=== PATIENT | male | born 1960 | race Caucasian/White ===

== ENCOUNTER 2018-03-04 13:18 | Emergency (ER) | payer OTHER ==
[2018-03-04 13:20] VITALS: BP 188/137
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
[2018-03-04] MEDS ORDERED: IBUPROFEN 800 MG TAB PO ONE (15:10)
== END 2018-03-04 15:38 | disposition home or self-care (01) ==
LOC: ER 13:32
DX: S70.11XA Contusion of right thigh, initial encounter (principal); V68.5XXA Driver of heavy transport vehicle injured in noncollision transport accident in traffic accident, initial encounter
CPT/HCPCS: 99284

== ENCOUNTER → 2018-03-04 | Outpatient (CLI) | payer OTHER | LOC: AMB 12:38 | PROVIDERS: ATTEND Nurse Practitioner | DX: M79.652 Pain in left thigh (principal); R51 Headache; V49.9XXA Car occupant (driver) (passenger) injured in unspecified traffic accident, initial encounter; Y92.411 Interstate highway as the place of occurrence of the external cause | CPT/HCPCS: A0425; A0429 ==